=== PATIENT | male | born 1985 | race Caucasian/White ===

== ENCOUNTER 2022-04-28 20:11 | Emergency (ER) | payer OTHER ==
[2022-04-28] MEDS ORDERED: HYDROCODON-ACE1 EAC4 PO (22:27)
== END 2022-04-28 22:05 | disposition home or self-care (01) ==
LOC: ER1 20:11
DX: S42.022A Displaced fracture of shaft of left clavicle, initial encounter for closed fracture (principal); F17.210 Nicotine dependence, cigarettes, uncomplicated; V89.2XXA Person injured in unspecified motor-vehicle accident, traffic, initial encounter; Y92.410 Unspecified street and highway as the place of occurrence of the external cause
CPT/HCPCS: 70450; 71045; 72125; 73030; 73060; 73080; 99284